=== PATIENT | female | born 1980 | race Caucasian/White ===

== ENCOUNTER 2024-04-30 23:18 | Inpatient (IN) | payer OTHER ==
[~2024-04-30] VITALS: Ht 154.9 cm; Wt 77.7 kg
[~2024-04-30 23:18] MED LIST: CYCL10TA21 MT; DIPH12.56 MT; MAG355OR21 MT; NAPR220C61 MT
[2024-05-01] MEDS: IPRATROPIUM BROMIDE (0.02%) 0.5MG/2.5ML NEB HHN STA (00:19)
[2024-05-01] MEDS: ALBUTEROL (0.083%) 2.5MG/3ML NEB HHN STA (00:19)
[2024-05-01 01:03] LABS: CHLORIDE 107 mEq/L (98-107); POTASSIUM 5.5 mEq/L (3.5-5.1); SODIUM 139 mEq/L (136-145)
[2024-05-01 01:04] LABS: CALCIUM 8.9 mg/dL (8.7-10.4); CARBON DIOXIDE 25 mEq/L (21-32)
[2024-05-01 01:09] LABS: CREATININE 0.7 mg/dL (0.6-1.0); GLUCOSE 185 mg/dL (70-105); UREA NITROGEN BLOOD 7 mg/dL (9-23)
[2024-05-01 01:11] LABS: ALANINE AMINOTRANSFERASE 17 IU/L (10-49); ALBUMIN 4.2 g/dL (3.2-4.8); ASPARTATE AMINOTRANSFERASE 33 IU/L (<34); BILIRUBIN TOTAL 0.3 mg/dL (0.1-1.0); PROTEIN TOTAL 6.7 g/dL (6.0-8.3)
[2024-05-01] MEDS: MAGNESIUM 2 G PREMIX 50 ML IV STA (01:12)
[2024-05-01] MEDS: DEXAMETHASONE 10 MG/ML VIAL IV ONE (01:12)
[2024-05-01] MEDS: MORPHINE SULFATE 4 MG/ML INJ (FOR IV/IM USE) IV ONE (01:21)
[2024-05-01 02:25] LABS: HEMATOCRIT 40.2 % (36.0-48.0); HEMOGLOBIN 13.3 g/dL (12.0-16.0); MEAN CORPUSCULAR HEMOGLOBIN 30.5 pg (28.0-32.0); MEAN CORPUSCULAR HGB CONC 33.1 g/dL (31.0-37.0); MEAN CORPUSCULAR VOLUME 91.9 fL (81.0-99.0); PLATELET 227 x1000/uL (130-400); RED BLOOD CELL COUNT 4.38 mill/uL (4.2-5.4); RED CELL DISTRIBUTION WIDTH 13.4 % (11.6-14.6); WHITE BLOOD COUNT 9.5 x1000/uL (4.5-11.0)
[2024-05-01 03:22] LABS: POTASSIUM 3.7 mEq/L (3.5-5.1)
[2024-05-01] MEDS ORDERED: LISI10TA26 PO (03:42)
[2024-05-01 03:48] VITALS: BP 127/59; PULSE 94; RESP 20; TEMP 97.7
[2024-05-01] MEDS ORDERED: GUAIFENESIN 200MG/10ML SUGAR FREE UDC PO PRN (05:00)
[2024-05-01] MEDS ORDERED: CLONIDINE 0.1MG TABLET PO PRN (05:00)
[2024-05-01] MEDS ORDERED: ONDANSETRON HCL 4MG/2ML INJ IV PRN (05:00)
[2024-05-01] MEDS ORDERED: IPRATROPIUM/ALBUTEROL 0.5-3(2.5)MG/3ML NEB HHN PRN (05:00)
[2024-05-01] MEDS ORDERED: DOCUSATE SODIUM 100MG CAPSULE PO PRN (05:00)
[2024-05-01] MEDS: HYDROCODONE/ACETAMINOPHEN 5/325MG TABLET PO ONE (05:23)
[2024-05-01] MEDS ORDERED: DEXTROSE 50% WATER 50ML SYRINGE IV PRN (05:30)
[2024-05-01 05:35] VITALS: PULSE 100; RESP 18; O2SAT 96
[2024-05-01] MEDS: IPRATROPIUM/ALBUTEROL 0.5-3(2.5)MG/3ML NEB HHN SCH (05:35)
[2024-05-01] MEDS: BLOOD SUGAR DIAGNOSTIC STRIP TEST SCH (07:40)
[2024-05-01 08:00] VITALS: BP 145/67; PULSE 99; TEMP 100.6
[2024-05-01] MEDS: INSULIN LISPRO 100 UNITS/ML SUBCUT SCH (08:23)
== END 2024-05-01 11:30 | disposition left against medical advice (07) | DRG 203 ==
LOC: ER 23:18 → 7WST 05-01 01:51
PROVIDERS: ADMIT Hospitalist; ATTEND Hospitalist
DX: J45.901 Unspecified asthma with (acute) exacerbation (principal); E11.9 Type 2 diabetes mellitus without complications; F17.200 Nicotine dependence, unspecified, uncomplicated; I10 Essential (primary) hypertension; J44.9 Chronic obstructive pulmonary disease, unspecified; Z53.29 Procedure and treatment not carried out because of patient's decision for other reasons; Z88.0 Allergy status to penicillin; Z88.6 Allergy status to analgesic agent; Z98.891 History of uterine scar from previous surgery; Z79.899 Other long term (current) drug therapy; Z88.8 Allergy status to other drugs, medicaments and biological substances
CPT/HCPCS: 36415; 71045; 80053; 82962; 83036; 84132; 85027; 94640; 94644; 99285; J1100; J1815; J2270; J3475

== ENCOUNTER 2024-05-05 20:17 | Emergency (ER) | payer OTHER ==
[~2024-05-05] VITALS: Ht 162.6 cm; Wt 91.0 kg
[~2024-05-05 20:17] MED LIST changes: +LISI10TA26 PO
[2024-05-05 20:22] VITALS: BP 149/74; PULSE 96; RESP 18; TEMP 97.8; O2SAT 95
== END 2024-05-05 22:02 | disposition left against medical advice (07) ==
LOC: ER 20:17
DX: M54.9 Dorsalgia, unspecified (principal); Z53.21 Procedure and treatment not carried out due to patient leaving prior to being seen by health care provider

== ENCOUNTER 2024-05-29 01:42 | Emergency (ER) | payer OTHER, MEDICAID ==
[~2024-05-29] VITALS: Ht 154.9 cm; Wt 90.6 kg
[2024-05-29 03:10] LABS: BASOPHILS % 0.4 % (0.0-2.0); EOSINOPHILS % 1.6 % (0.0-5.0); HEMATOCRIT. 43.2 % (36.0-48.0); HEMOGLOBIN. 14.2 g/dL (12.0-16.0); LYMPHOCYTES % 29.7 % (20.0-50.0); MEAN CORPUSCULAR HEMOGLOBIN 29.9 pg (28.0-32.0); MEAN CORPUSCULAR HGB CONC 32.8 g/dL (31.0-37.0); MEAN CORPUSCULAR VOLUME 91.2 fL (81.0-99.0); MEAN PLATELET VOLUME 9.7 fl (7.4-10.4); MONOCYTES % 9.4 % (2.0-8.0); NEUTROPHILS % 58.9 % (40.0-76.0); PLATELET 237 x1000/uL (130-400); RED BLOOD CELL COUNT 4.74 mill/uL (4.2-5.4); RED CELL DISTRIBUTION WIDTH 13.6 % (11.6-14.6); WHITE BLOOD COUNT 8.8 x1000/uL (4.5-11.0)
[2024-05-29 03:15] LABS: CHLORIDE 104 mEq/L (98-107); POTASSIUM 3.8 mEq/L (3.5-5.1); SODIUM 140 mEq/L (136-145)
[2024-05-29 03:16] LABS: CARBON DIOXIDE 29 mEq/L (21-32)
[2024-05-29 03:17] LABS: CALCIUM 9.6 mg/dL (8.7-10.4)
[2024-05-29 03:21] LABS: CREATININE 0.7 mg/dL (0.6-1.0); GLUCOSE 201 mg/dL (70-105); UREA NITROGEN BLOOD 16 mg/dL (9-23)
[2024-05-29 03:22] LABS: TROPONIN I HIGH SENSITIVITY 16 ng/L (3.0-34)
[2024-05-29 03:37] VITALS: PULSE 76; RESP 18; O2SAT 94
[2024-05-29] MEDS: ALBUTEROL (0.083%) 2.5MG/3ML NEB HHN ONE (03:37)
[2024-05-29] MEDS: PREDNISONE 20MG TABLET PO ONE (05:30)
[2024-05-29] MEDS: TRAMADOL 50MG TABLET PO ONE (05:30)
[2024-05-29] MEDS ORDERED: P50 PO (05:32)
[2024-05-29] MEDS ORDERED: TRAM50TA3 MT (05:32)
[2024-05-29 05:55] VITALS: BP 142/78; PULSE 79; RESP 18; TEMP 97.7
== END 2024-05-29 05:56 | disposition home or self-care (01) ==
LOC: ER 01:42
DX: J44.1 Chronic obstructive pulmonary disease with (acute) exacerbation (principal); E11.9 Type 2 diabetes mellitus without complications; K21.9 Gastro-esophageal reflux disease without esophagitis; I10 Essential (primary) hypertension; Z98.890 Other specified postprocedural states
CPT/HCPCS: 80048; 85025; 84484; 36415; 71045; 94640; 93005; 99285; J7512; Z7610 ×2

== ENCOUNTER 2024-06-11 16:12 | Emergency (ER) | payer OTHER, MEDICAID ==
[~2024-06-11] VITALS: Ht 160 cm; Wt 95.5 kg
[~2024-06-11 16:12] MED LIST changes: +P50 PO; +TRAM50TA3 MT
[2024-06-11 16:15] VITALS: BP 180/86; PULSE 111; RESP 18; TEMP 98.1; O2SAT 96
== END 2024-06-11 16:41 | disposition home or self-care (01) ==
LOC: ER 16:12
DX: J44.1 Chronic obstructive pulmonary disease with (acute) exacerbation (principal); E11.9 Type 2 diabetes mellitus without complications; K21.9 Gastro-esophageal reflux disease without esophagitis; I10 Essential (primary) hypertension; F19.90 Other psychoactive substance use, unspecified, uncomplicated; Z98.890 Other specified postprocedural states; Z88.6 Allergy status to analgesic agent; Z88.0 Allergy status to penicillin; Z88.8 Allergy status to other drugs, medicaments and biological substances
CPT/HCPCS: 99283

== ENCOUNTER 2024-07-22 00:44 | Inpatient (IN) | payer OTHER, MEDICAID ==
[~2024-07-22] VITALS: Ht 154.9 cm; Wt 89.8 kg
[2024-07-22] MEDS: IPRATROPIUM/ALBUTEROL 0.5-3(2.5)MG/3ML NEB HHN SCH (00:33)
[2024-07-22] MEDS ORDERED: IPRATROPIUM BROMIDE (0.02%) 0.5MG/2.5ML NEB HHN STA (01:20)
[2024-07-22] MEDS: SODIUM CHLORIDE 0.9% 1,000 ML IV ONE (01:30)
[2024-07-22] MEDS ORDERED: HYDROCODONE/ACETAMINOPHEN 5/325MG TABLET PO ONE (01:30)
[2024-07-22] MEDS: HYDROCODONE/ACETAMINOPHEN 5/325MG TABLET PO NR (02:35)
[2024-07-22 03:05] VITALS: PULSE 85; RESP 18; O2SAT 94
[2024-07-22] MEDS: ALBUTEROL (0.083%) 2.5MG/3ML NEB HHN SCH (03:05)
[2024-07-22] MEDS: IPRATROPIUM BROMIDE (0.02%) 0.5MG/2.5ML NEB HHN NR (03:06)
[2024-07-22] MEDS: MAGNESIUM 2 G PREMIX 50 ML IV ONE (03:11)
[2024-07-22 08:00] VITALS: BP 124/78; PULSE 75; RESP 18; TEMP 36.6696; O2SAT 98
[2024-07-22 10:23] VITALS: BP 122/78; PULSE 75; RESP 19; TEMP 36.6404
[2024-07-22] MEDS ORDERED: PANTOPRAZOLE SODIUM 40 MG/VIAL IV SCH (11:30)
[2024-07-22] MEDS ORDERED: ACETAMINOPHEN 325MG TABLET PO PRN (11:30)
[2024-07-22] MEDS ORDERED: DOCUSATE SODIUM 100MG CAPSULE PO PRN (11:30)
[2024-07-22] MEDS ORDERED: CLONIDINE 0.1MG TABLET PO PRN (11:30)
[2024-07-22] MEDS ORDERED: ONDANSETRON HCL 4MG/2ML INJ IV PRN (11:30)
[2024-07-22] MEDS ORDERED: IPRATROPIUM/ALBUTEROL 0.5-3(2.5)MG/3ML NEB HHN PRN (11:30)
[2024-07-22] MEDS ORDERED: DEXTROSE 50% WATER 50ML SYRINGE IV PRN (11:30)
[2024-07-22] MEDS ORDERED: METHYLPREDNISOLONE SOD SUCC 40MG/ML (ACT-O-VIAL) IV ONE (11:30)
[2024-07-22 12:00] VITALS: BP 126/74; PULSE 78; RESP 18; TEMP 36.61404; O2SAT 98
[2024-07-22] MEDS: BLOOD SUGAR DIAGNOSTIC STRIP TEST SCH (12:20)
[2024-07-22] MEDS: INSULIN LISPRO 100 UNITS/ML SUBCUT SCH (12:50)
[2024-07-22] MEDS: HYDRALAZINE HCL 25MG TABLET PO SCH (14:00)
[2024-07-22 16:00] VITALS: BP 130/76; PULSE 76; RESP 18; TEMP 36.78072; O2SAT 98
[2024-07-22] MEDS: ACETAMINOPHEN 325MG TABLET PO PRN (18:19)
[2024-07-22] MEDS ORDERED: TRAMADOL 50MG TABLET PO PRN (18:30)
[2024-07-22] MEDS ORDERED: NALOXONE HCL 0.4MG/ML VIAL IV PRN (18:45)
[2024-07-22 20:00] VITALS: BP 140/68; PULSE 78; RESP 20; TEMP 36.3918; O2SAT 97
[2024-07-22] MEDS: TRAMADOL 50MG TABLET PO PRN (22:10)
[2024-07-23] VITALS: BP 131/80; PULSE 66; RESP 17; TEMP 37.16964; O2SAT 100
[2024-07-23] MEDS ORDERED: METHYLPREDNISOLONE SOD SUCC 40MG/ML (ACT-O-VIAL) IV SCH (01:00)
[2024-07-23] MEDS: PREDNISONE 20MG TABLET PO SCH (01:15)
[2024-07-23 08:24] VITALS: PULSE 74; RESP 18; O2SAT 96
== END 2024-07-23 08:52 | disposition left against medical advice (07) | DRG 192 ==
LOC: ER 00:44 → 6EST 04:30 → ER 08:05
PROVIDERS: ADMIT Internal Medicine; ATTEND Internal Medicine
DX: J44.1 Chronic obstructive pulmonary disease with (acute) exacerbation (principal); M54.9 Dorsalgia, unspecified; E11.9 Type 2 diabetes mellitus without complications; I10 Essential (primary) hypertension; K21.9 Gastro-esophageal reflux disease without esophagitis; Z53.21 Procedure and treatment not carried out due to patient leaving prior to being seen by health care provider; E66.9 Obesity, unspecified; F17.210 Nicotine dependence, cigarettes, uncomplicated; Z88.0 Allergy status to penicillin; Z88.6 Allergy status to analgesic agent; Z86.73 Personal history of transient ischemic attack (TIA), and cerebral infarction without residual deficits; Z98.891 History of uterine scar from previous surgery; Z79.899 Other long term (current) drug therapy; Z68.37 Body mass index [BMI] 37.0-37.9, adult
CPT/HCPCS: 71045; 82962; 94640; 99285; J1815; J3475; J7030